=== PATIENT | male | born 1980 | race Caucasian/White ===

== ENCOUNTER 2017-04-16 10:50 | Emergency (ER) | payer OTHER ==
--- NOTE | 2017-04-16 11:03 | EDPHY ---
H & P Time Seen by Provider: 04/16/17 10:58 HPI/ROS: CHIEF COMPLAINT: Left middle finger injury HISTORY OF PRESENT ILLNESS: The patient is a 36-year-old man who comes to the emergency department complaining of continued pain and decreased flexibility in his left middle finger at the PIP joint. He states that 2 months ago he was taking down a tent when a telescoping pole smashed his finger. He has been trying to get in to see a primary care physician but was unable to get an appointment. He states that he has some mild pain when he shake out worker things. He cannot completely flex that PIP joint like he was able to previously. It does appear slightly enlarged compared to his other joints. No weakness or numbness. He denies other injuries. REVIEW OF SYSTEMS: Constitutional: denies: chills, fever, recent illness, recent injury EENTM: denies: blurred vision, double vision, nose congestion Respiratory: denies: cough, shortness of breath Cardiac: denies: chest pain, irregular heart rate, lightheadedness, palpitations Gastrointestinal/Abdominal: denies: abdominal pain, diarrhea, nausea, vomiting, blood streaked stools Genitourinary: denies: dysuria, frequency, hematuria, pain Musculoskeletal: See HPI Skin: denies: lesions, rash, jaundice, bruising Neurological: denies: headache, numbness, paresthesia, tingling, dizziness, weakness Hematologic/Lymphatic: denies: blood clots, easy bleeding, easy bruising Immunologic/allergic: denies: HIV/AIDS, transplant EXAM: GENERAL: Well-appearing, well-nourished and in no acute distress. HEAD: Atraumatic, normocephalic. EYES: Pupils equal round and reactive to light, extraocular movements intact, sclera anicteric, conjunctiva are normal. ENT: TMs normal, nares patent, oropharynx clear without exudates. Moist mucous membranes. NECK: Normal range of motion, supple without lymphadenopathy or JVD. LUNGS: Breath sounds clear to auscultation bilaterally and equal. No wheezes rales or rhonchi. HEART: Regular rate and rhythm without murmurs, rubs or gallops. ABDOMEN: Soft, nontender, normoactive bowel sounds. No guarding, no rebound. No masses appreciated. BACK: No CVA tenderness, no spinal tenderness, step-offs or deformities EXTREMITIES: Left middle finger injury at the PIP joint. Slightly larger than other joints. Flexed at 90 degrees. Other joints can flex just beyond this. Normal strength. Normal sensation. Normal capillary refill. NEUROLOGICAL: Cranial nerves II through XII grossly intact. Normal speech, normal gait. 5/5 strength, normal movement in all extremities, normal sensation PSYCH: Normal mood, normal affect. SKIN: Warm, dry, normal turgor, no visible rashes or lesions. Source: Patient Exam Limitations: No limitations - Medical/Surgical History Hx Asthma: No Hx Chronic Respiratory Disease: No Hx Diabetes: No Hx Cardiac Disease: No Hx Renal Disease: No Hx Cirrhosis: No Hx Alcoholism: No - Family History Significant Family History: No pertinent family hx - Social History Smoking Status: Never smoked Alcohol Use: Sober Drug Use: None Constitutional: Initial Vital Signs Temperature (C) 36.5 C 04/16/17 11:04 Heart Rate 68 04/16/17 11:04 Respiratory Rate 18 04/16/17 11:04 Blood Pressure 126/79 H 04/16/17 11:04 O2 Sat (%) 94 04/16/17 11:04 O2 Delivery Mode Room Air Allergies/Adverse Reactions: No Known Allergies Allergy (Unverified 04/16/17 11:03) Home Medications: Medication Instructions Recorded NK [No Known Home Meds] 04/16/17 Medical Decision Making - Diagnostics Imaging Results: Imaging Impressions Finger X-Ray 04/16/17 11:01 Impression: No recent posttraumatic abnormality identified. Please see above. Imaging: Discussed imaging studies w/ front clerk Radiologist ED Course/Re-evaluation: We discussed exercise. The patient is reassured. I will refer him to physical therapy and hand surgery. He understands and agrees with this plan. I encouraged him to maintain mobilization. Differential Diagnosis: Partial list of the Differential diagnosis considered include but were not limited to; contusion, fracture and although unlikely based on the history and physical exam, I also considered dislocation, vascular injury, tendon rupture. I discussed these differential diagnoses and the plan with the patient as well as the usual and expected course. The patient understands that the diagnosis is provisional and that in medicine we are not always correct and that further workup is often warranted. Usual and customary warnings were given. All of the patient's questions were answered. The patient was instructed to return to the emergency department should the symptoms at all worsen or return, otherwise to followup with the physician as we discussed. Departure - Departure Disposition: Home, Routine, Self-Care Clinical Impression: Finger injury Qualifiers: Encounter type: initial encounter Laterality: left Qualified Code(s): S69.92XA - Unspecified injury of left wrist, hand and finger(s), initial encounter Condition: Fair Instructions: Finger Sprain (ED) Additional Instructions: Follow-up with physical therapy as discussed. Follow up with Dr. Shin for hand surgery if your symptoms are not improving. Referrals: Samir Gregory MD [Primary Care Provider] - As per Instructions Baldemar Shin MD [Medical Doctor] - 5-7 days, if not improved
[2017-04-16 11:13] VITALS: RESP 18
[2017-04-16 11:36] VITALS: BP 125/69; PULSE 74; TEMP 98.1; O2SAT 96
== END 2017-04-16 11:38 | disposition home or self-care (01) ==
LOC: CED 10:50
DX: S69.92XA Unspecified injury of left wrist, hand and finger(s), initial encounter (principal); X58.XXXA Exposure to other specified factors, initial encounter
CPT/HCPCS: 73140-PO

== ENCOUNTER 2018-01-12 10:15 | Emergency (ER) | payer OTHER ==
[2018-01-12 10:30] VITALS: BP 141/92
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
== END 2018-01-12 11:23 | disposition home or self-care (01) ==
LOC: CED 10:15
DX: S82.52XA Displaced fracture of medial malleolus of left tibia, initial encounter for closed fracture (principal); V18.0XXA Pedal cycle driver injured in noncollision transport accident in nontraffic accident, initial encounter; Y92.89 Other specified places as the place of occurrence of the external cause; Y99.8 Other external cause status; Y93.55 Activity, bike riding
CPT/HCPCS: 73610-PO; L4386